=== PATIENT | male | born 1990 | race African-American/Black ===

== ENCOUNTER 2021-01-29 16:14 | Emergency (ER) | payer MEDICAID ==
[~2021-01-29] VITALS: Ht 180.3 cm; Wt 80.0 kg
[2021-01-29] MEDS ORDERED: IBUPROFEN 600MG TABLET PO STA (16:45)
[2021-01-29] MEDS ORDERED: IBUP-2029 PO (18:58)
[2021-01-29 19:10] VITALS: BP 113/79
== END 2021-01-29 19:11 | disposition home or self-care (01) ==
LOC: ER 16:14
DX: S92.491A Other fracture of right great toe, initial encounter for closed fracture (principal); F41.9 Anxiety disorder, unspecified; W13.8XXA Fall from, out of or through other building or structure, initial encounter; Y93.89 Activity, other specified; Y92.89 Other specified places as the place of occurrence of the external cause; Y99.8 Other external cause status
CPT/HCPCS: 73630; 99283; Z7610